=== PATIENT | male | born 1975 | race Caucasian/White ===

== ENCOUNTER 2017-10-31 21:49 | Emergency (ER) | payer SELFPAY ==
[~2017-10-31] VITALS: Ht 182.9 cm; Wt 86.2 kg
[~2017-10-31 21:49] MED LIST: HYDR-757 PO; MINO100C6 PO; SULF-222 PO
--- OUTSIDE RECORDS SUMMARY | 2017-10-31 21:59 | XMS REPORT | Continuity of Care Document ---
Author Author [facility] Organization [facility] Address Unknown Phone Unavailable Allergies Active Description Code Type Severity Reaction Onset Reported/Identified Relationship to Patient Clinical Status Yes Penicillins [id number] Drug Allergy Unknown N/A 12/17/2014 Medications There is no data. Problems Date Dx Coded Attending Type Code Diagnosis Diagnosed By 12/17/2014 GINA PASTRANA APRN Ot 719.06 12/17/2014 GINA PASTRANA APRN Ot 726.65 Procedures There is no data. Results There is no data. Encounters ACCT No. Visit Date/Time Discharge Status Pt. Type Provider Facility Loc./Unit Complaint [id number] 12/17/2014 09:27:00 12/17/2014 12:21:00 DIS Emergency GINA PASTRANA APRN [facility] ER
[2017-10-31] MEDS ORDERED: LIDOCAINE 2% VISCOUS 15 ML UDC PO ONE (22:00)
[2017-10-31] MEDS ORDERED: CEPHALEXIN 250 MG (KEFLEX) CAP PO ONE (22:00)
[2017-10-31] MEDS ORDERED: NAPROXEN 250 MG (NAPROSYN) TABLET PO ONE (22:00)
[2017-10-31] MEDS ORDERED: NAPR-1071 PO (22:01)
[2017-10-31] MEDS ORDERED: CEPH-507 PO (22:01)
--- NOTE | 2017-10-31 22:01 | ED EENT ---
History of Present Illness General Chief Complaint: Dental Problems/Pain Stated Complaint: DENTAL PAIN Source: patient Exam Limitations: no limitations History of Present Illness Date Seen by Provider: Oct 31, 2017 Time Seen by Provider: 21:58 Initial Comments To ER with reports of dental pain. This is left upper and lower dental pain present for 2 weeks. No known injury. This began about a year ago and has been bothering him intermittently since. He does not see a dentist. Timing/Duration: gradual, intermittent Severity: moderate Location: dental Allergies and Home Medications Allergies Coded Allergies: Penicillins (Unverified Adverse Reaction, Unknown, 12/17/14) Home Medications Cephalexin 500 Mg Capsule, 500 MG PO TID Prescribed by: GINA PASTRANA on 10/31/172200 Hydrocodone Bit/Acetaminophen 1 Each Tablet, 1 EA PO Q6H PRN for SEVERE PAIN Prescribed by: GINA PASTRANA on 12/17/14 115 Minocycline Hcl 100 Mg Capsule, 100 MG PO BID Prescribed by: GINA PASTRANA on 12/17/14 115 Naproxen 500 Mg Tablet, 500 MG PO BID PRN for PAIN-MODERATE TO SEVERE Prescribed by: GINA PASTRANA on 10/31/172200 Trimethoprim/Sulfamethoxazole 1 Ea Tablet, 1 TAB PO BID, (Reported) Patient Home Medication List Home Medication List Reviewed: Yes Review of Systems Constitutional: see HPI Eyes: No Symptoms Reported Ears: No Symptoms Reported Nose: no symptoms reported Mouth: see HPI Throat: no symptoms reported Respiratory: no symptoms reported Cardiovascular: no symptoms reported Musculoskeletal: no symptoms reported Past Qmsxfex-Nawipj-Nkaenv Hx Patient Social History Recent Foreign Travel: No Contact w/Someone Who Travel: No Immunizations Up To Date Tetanus Booster (TDap): Unknown Seasonal Allergies Seasonal Allergies: Yes Surgeries Surgeries: Orthopedic Respiratory Respiratory Disorders: Asthma Reproductive System Hx Reproductive Disorders: No Musculoskeletal Musculoskeletal Disorders: Fractures Integumentary Skin/Integumentary Disorders: Eczema Blood Transfusions Adverse Reaction to a Blood Tr: No Physical Exam Vital Signs Vital Signs - First Documented 10/31/17 21:56 Temp 97.0 Pulse 79 Resp 18 B/P (MAP) 143/98 (113) Pulse Ox 100 General Appearance: WD/WN, no apparent distress Eyes: bilateral eye normal inspection, bilateral eye PERRL, bilateral eye EOMI Ears: bilateral ear auricle normal, bilateral ear canal normal, bilateral ear TM normal Mouth/Throat: other (multiple carious fractured and eroded teeth. No palpable fluctuant abscess or swelling) Neck: non-tender, full range of motion Respiratory: no respiratory distress, no accessory muscle use Neurologic/Psychiatric: alert, normal mood/affect, oriented x 3 Skin: normal color, warm/dry Progress/Results/Core Measures Results/Orders My Orders Orders - GINA PASTRANA APRN Naproxen Tablet (Naprosyn Tablet) (10/31/17 22:00) Cephalexin Capsule (Keflex Capsule) (10/31/17 22:00) Lidocaine 2% Viscous 15 Ml (Xylocaine Vi (10/31/17 22:00) Ketorolac Injection (Toradol Injection) (10/31/17 22:15) Medications Given in ED Current Medications Medications Dose Ordered Sig/Kip Route Start Time Stop Time Status Last Admin Dose Admin Cephalexin HCl 500 mg ONCE ONCE PO 10/31/17 22:00 10/31/17 22:01 DC 10/31/17 22:10 500 MG Ketorolac Tromethamine 60 mg ONCE ONCE IM 10/31/17 22:15 10/31/17 22:16 10/31/17 22:10 60 MG Lidocaine HCl 5 ml ONCE ONCE PO 10/31/17 22:00 10/31/17 22:01 DC 10/31/17 22:10 5 ML Vital Signs/I&O Vital Sign - Last 12Hours 10/31/17 21:56 Temp 97.0 Pulse 79 Resp 18 B/P (MAP) 143/98 (113) Pulse Ox 100 Departure Impression Impression: Primary Impression: Pain, dental Disposition: HOME, SELF-CARE Condition: Stable Departure-Patient Inst. Decision time for Depature: 22:00 Referrals: NO,LOCAL PHYSICIAN (PCP/Family) Primary Care Physician Patient Instructions: Dental Pain (DC) Add. Discharge Instructions: 1. Antibiotics and pain medication as directed. Follow-up with a dentist CLAIRE All discharge instructions reviewed with patient and/or family. Voiced understanding. Scripts Naproxen (Naprosyn) 500 Mg Tablet 500 MG PO BID Y for PAIN-MODERATE TO SEVERE, #20 TAB Prov: GINA PASTRANA APRN 10/31/17 Cephalexin (Keflex) 500 Mg Capsule 500 MG PO TID, #21 CAP Prov: GINA PASTRANA APRN 10/31/17 GINA PASTRANA APRN Oct 31, 2017 22:01
[2017-10-31] MEDS ORDERED: KETOROLAC 60 MG/2 ML VIAL IM ONE (22:15)
[2017-10-31 22:22] VITALS: BP 143/98
== END 2017-10-31 22:26 | disposition home or self-care (01) ==
LOC: EDUNIT# 21:49 → ER 21:50
DX: K08.89 Other specified disorders of teeth and supporting structures (principal); J45.909 Unspecified asthma, uncomplicated; Z87.81 Personal history of (healed) traumatic fracture; Z88.0 Allergy status to penicillin
CPT/HCPCS: 96372; 99284

== ENCOUNTER 2018-10-10 10:59 | Emergency (ER) | payer SELFPAY ==
[~2018-10-10] VITALS: Ht 182.9 cm; Wt 86.2 kg
[~2018-10-10 10:59] MED LIST changes: +CEPH-507 PO; +NAPR-1071 PO
--- NOTE | 2018-10-10 11:28 | NUR ---
PATIENT CAME TO DESK ASK TO GO OUTSIDE TO TRUCK.
[2018-10-10] MEDS ORDERED: NS IV 1000 ML 1,000 ML IV SCH (11:30)
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
[2018-10-10 11:46] LABS: BASOPHILS % (AUTO) 1 % (0-10); EOSINOPHILS % (AUTO) 1 % (0-10); HEMATOCRIT 42 % (40-54); HEMOGLOBIN 14.9 G/DL (13.3-17.7); LYMPHOCYTES # (AUTO) 1.7 X 10^3 (1.0-4.0); LYMPHOCYTES % (AUTO) 40 % (12-44); MEAN CORPUSCULAR HEMOGLOBIN 29 PG (25-34); MEAN CORPUSCULAR HGB CONC 35 G/DL (32-36); MEAN CORPUSCULAR VOLUME 83 FL (80-99); MEAN PLATELET VOLUME 9.8 FL (7.4-10.4); MONOCYTES # (AUTO) 0.3 X 10^3 (0.0-1.0); MONOCYTES % (AUTO) 8 % (0-12); NEUTROPHILS # (AUTO) 2.2 X 10^3 (1.8-7.8); NEUTROPHILS % (AUTO) 50 % (42-75); PLATELET COUNT 219 10^3/uL (130-400); RED CELL DISTRIBUTION WIDTH 12.5 % (10.0-14.5); WHITE BLOOD COUNT 4.3 10^3/uL (4.3-11.0)
[2018-10-10 12:08] LABS: ALANINE AMINOTRANSFERASE 42 U/L (0-55); ALBUMIN 3.9 GM/DL (3.2-4.5); ALKALINE PHOSPHATASE 98 U/L (40-136); BILIRUBIN,TOTAL 0.3 MG/DL (0.1-1.0); BUN/CREATININE RATIO 18; CALCIUM 9.3 MG/DL (8.5-10.1); CARBON DIOXIDE 29 MMOL/L (21-32); CHLORIDE 105 MMOL/L (98-107); CREATININE SERUM 0.84 MG/DL (0.60-1.30); GFR ESTIMATED > 60; POTASSIUM 3.9 MMOL/L (3.6-5.0); SODIUM 141 MMOL/L (135-145); TOTAL PROTEIN 6.9 GM/DL (6.4-8.2)
[2018-10-10 12:18] LABS: GLUCOSE 53 MG/DL (70-105)
--- NOTE | 2018-10-10 12:35 | NUR ---
FOOD TRAY ORDERED
--- NOTE | 2018-10-10 12:37 | NUR ---
FOOD TRAY ORDERED.
[2018-10-10 13:14] LABS: BILIRUBIN,URINE NEGATIVE (NEGATIVE); CLARITY,URINE CLEAR; COLOR,URINE YELLOW; GLUCOSE, URINE (UA) NEGATIVE (NEGATIVE); KETONES,URINE NEGATIVE (NEGATIVE); LEUKOCYTE ESTERASE ,URINE NEGATIVE (NEGATIVE); NITRITE,URINE NEGATIVE (NEGATIVE); PH,URINE 6.5 (5-9); PROTEIN,URINE NEGATIVE (NEGATIVE); UROBILINOGEN,URINE NORMAL (NORMAL)
[2018-10-10 13:29] LABS: AMPHETAMINE SCREEN, URINE NEGATIVE (NEGATIVE); BARBITURATE SCREEN URINE NEGATIVE (NEGATIVE); BENZODIAZEPINES SCREEN URINE NEGATIVE (NEGATIVE); CANNABINOID SCREEN, URINE POSITIVE (NEGATIVE); COCAINE SCREEN URINE NEGATIVE (NEGATIVE); METHADONE STAT NEGATIVE (NEGATIVE); METHAMPHETAMINE SCREEN URINE S POSITIVE (NEGATIVE); OPIATE SCREEN URINE NEGATIVE (NEGATIVE); OXYCODONE STAT NEGATIVE (NEGATIVE); PROPOXYPHENE STAT NEGATIVE (NEGATIVE); TRICYCLIC ANTIDEPRESSANTS SCRE NEGATIVE (NEGATIVE)
[2018-10-10 13:36] LABS: BACTERIA,URINE NEGATIVE /HPF
[2018-10-10 13:50] VITALS: BP 117/81
== END 2018-10-10 13:51 | disposition home or self-care (01) ==
LOC: EDUNIT# 10:59 → ER 11:00
DX: J11.1 Influenza due to unidentified influenza virus with other respiratory manifestations (principal); J45.909 Unspecified asthma, uncomplicated; F17.200 Nicotine dependence, unspecified, uncomplicated; Z88.0 Allergy status to penicillin
CPT/HCPCS: 36415; 80053; 80306; 81000; 82962; 85025; 86308; 87804

== ENCOUNTER 2023-02-25 12:12 | Emergency (ER) | payer SELFPAY ==
[~2023-02-25] VITALS: Ht 182 cm; Wt 68.0 kg
[2023-02-25] MEDS ORDERED: TETANUS,DIPTH,PERTUSS P/F (BOOSTRIX) 0.5 ML VIAL IM ONE (12:30)
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
[2023-02-25] MEDS ORDERED: HYDROcodone/APAP 5 MG/325 MG (LORTAB) TAB PO ONE (13:00)
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
[2023-02-25] MEDS ORDERED: CEPH500T PO (14:01)
[2023-02-25] MEDS ORDERED: ACHD5005 PO (14:01)
[2023-02-25 14:15] VITALS: BP 120/88
== END 2023-02-25 14:15 | disposition home or self-care (01) ==
LOC: EDUNIT# 12:12 → ER 12:14
DX: S52.022A Displaced fracture of olecranon process without intraarticular extension of left ulna, initial encounter for closed fracture (principal); S60.414A Abrasion of right ring finger, initial encounter; Z88.0 Allergy status to penicillin; Z23 Encounter for immunization; V19.9XXA Pedal cyclist (driver) (passenger) injured in unspecified traffic accident, initial encounter; Y92.410 Unspecified street and highway as the place of occurrence of the external cause
CPT/HCPCS: 73080; 73090; 90715